=== PATIENT | female | born 2000 | race Caucasian/White ===

== ENCOUNTER 2024-09-12 19:35 | Emergency (ER) | payer OTHER | END 2024-09-12 22:13 | LOC: CSHERS 19:35 | DX: J06.9 Acute upper respiratory infection, unspecified (principal) | CPT/HCPCS: 87428; 99283 ==

== ENCOUNTER 2025-07-24 20:35 | Day surgery (SDC) | payer OTHER ==
[2025-07-24 21:11] VITALS: BMI 27.3
[2025-07-24] MEDS ORDERED: hydrALAZINE 20 MG/ML VIAL SLOW IVP PRN (22:04)
[2025-07-24 23:35] LABS: Glucose, Urine (Dipstick) Normal (Negative); Leukocyte Negative (Negative); Protein, Urine (Dipstick) 30 mg/dl (Neg-Trace); Specific Gravity, Urine 1.020 (1.005-1.030)
[2025-07-24 23:42] LABS: Bacteria/HPF None Seen HPF (None Seen); RBC/HPF None Seen HPF (0-3); WBC/HPF None Seen HPF (0-3)
== END 2025-07-24 23:53 | disposition home or self-care (01) ==
LOC: CSHLD/OP 20:35
PROVIDERS: ATTEND Family Medicine
DX: O99.891 Other specified diseases and conditions complicating pregnancy (principal); R10.9 Unspecified abdominal pain; Z3A.38 38 weeks gestation of pregnancy; Z67.41 Type O blood, Rh negative
CPT/HCPCS: 81001

== ENCOUNTER 2025-08-04 20:53 | Inpatient (IN) | payer OTHER ==
[~2025-08-04 20:53] MED LIST: Acetaminophen 500 MG TAB PO PRN; Bupivacaine 0.25% HCL 30 ML VIAL ONE; Bupivacaine HCl 0.5%/Epinephrine 1:200,000/PF 30 ml Vial ONE; Carboprost 250 MCG/ML AMP IM PRN; Diphenoxylate HCl/Atropine Tablet PO PRN; Ibuprofen 800 MG TAB PO PRN; Lidocaine 1% (PF) 30 ML VIAL SC PRN; Methylergonovine 0.2 MG/ML VIAL IM PRN; Tranexamic Acid 1,000 MG/10 ML VIAL IVP PRN; hydrALAZINE 20 MG/ML VIAL SLOW IVP PRN
[2025-08-04] MEDS ORDERED: Penicillin G Potassium 5 MILL.UNITS in Sodium Chloride 0.9% 100 ML IVPB SCH (21:00)
[2025-08-04] MEDS ORDERED: Oxytocin 30 units/NS 500 ML 500 ML IV SCH ×2 (21:00)
[2025-08-04 21:14] VITALS: BMI 27.6
[2025-08-04 22:11] LABS: Hematocrit 37.1 % (34.9-44.5); Hemoglobin 12.7 g/dL (12.0-15.5); Mean Corpuscular Hemoglobin 30.5 pg (27.0-33.0); Mean Corpuscular Volume 89.2 fL (81.6-98.3); Platelet Count 182 10x3/uL (150-450); Red Blood Cell (RBC) Count 4.16 10x6/uL (3.90-5.03); White Blood Cell (WBC) Count 10.46 10x3/uL (3.5-10.5)
[2025-08-04 22:45] LABS: Hep B Surf Ag - L&D Non-Reactive S/CO (NonReactive)
[2025-08-04 22:47] LABS: Syphilis Antibody Index 0.02 S/CO (<1.00 Non-Reactive)
[2025-08-05] MEDS ORDERED: Penicillin G 2.5 MILL.units 2.5 MILL.UNITS in Premix 1 BAG IVPB SCH (01:00)
[2025-08-05] MEDS: fentaNYL/Ropivacaine Epidural 100 ML ONE (11:39)
[2025-08-05] MEDS: Penicillin G Potassium 5 MILL.UNITS in Sodium Chloride 0.9% 100 ML IVPB SCH (12:33)
[2025-08-05] MEDS: Oxytocin 30 units/NS 500 ML 500 ML IV SCH (12:59)
[2025-08-05] MEDS: Penicillin G 2.5 MILL.units 2.5 MILL.UNITS in Premix 1 BAG IVPB SCH (15:49)
[2025-08-05] MEDS: Ondansetron PF 4 MG/2 ML Vial IVP PRN (19:23)
[2025-08-06] MEDS: Acetaminophen 500 MG TAB PO SCH (01:35)
[2025-08-06 02:26] LABS: Analyzer IN Cardio CS NICU; Critical Notified By: CP.PH; RapidComm Collect By CBN; pH (Cord, venous) 7.371 (7.250-7.350)
[2025-08-06 02:29] LABS: Analyzer IN Cardio CS NICU; Critical Notified By: CP.PH; RapidComm Collect By CBN
[2025-08-06] MEDS: Ibuprofen 800 MG TAB PO SCH ×2 (02:48→10:31)
[2025-08-06] MEDS ORDERED: Methylergonovine 0.2 MG TAB PO PRN (03:49)
[2025-08-06] MEDS ORDERED: Ondansetron PF 4 MG/2 ML Vial IVP PRN (03:49)
[2025-08-06] MEDS ORDERED: Lanolin Ointment 7 GM TUBE TOP PRN (03:49)
[2025-08-06] MEDS ORDERED: diphenhydrAMINE 25 MG CAP PO PRN (03:49)
[2025-08-06] MEDS ORDERED: Bisacodyl 10 MG SUPP PR PRN (03:49)
[2025-08-06] MEDS ORDERED: Milk Of Magnesia 30 ML UDCUP PO PRN (03:49)
[2025-08-06] MEDS ORDERED: Oxytocin 30 units/NS 500 ML 500 ML IV SCH (03:49)
[2025-08-06] MEDS ORDERED: hydrALAZINE 20 MG/ML VIAL SLOW IVP PRN (03:49)
[2025-08-06] MEDS: Ferrous Sulfate 325 MG TAB PO SCH (07:21)
[2025-08-06] MEDS: Benzocaine-Menthol 82.5 ML CAN TOP PRN (07:34)
[2025-08-06] MEDS: Acetaminophen 325 MG TAB PO PRN (09:06)
[2025-08-06] MEDS ORDERED: Measles/Mumps/Rubella 10 MCG/0.5 ML VIAL SC ONE (17:30)
[2025-08-06] MEDS: fentaNYL/Ropivacaine Epidural 100 ML ONE (17:45)
[2025-08-07 08:22] VITALS: BP 114/63; TEMP 97.4
[2025-08-07] MEDS: Measles/Mumps/Rubella 10 MCG/0.5 ML VIAL SC ONE (13:35)
[2025-08-08 05:38] LABS: Mumps IgG ABS Less than 9.0 AU/mL (Immune >10.9); Rubella Virus IgG Less than 0.90 index (Immune >0.99)
== END 2025-08-07 14:40 | disposition home or self-care (01) | DRG 768 ==
LOC: CSHLD 20:53 → CSHPP 08-06 04:15
PROVIDERS: ADMIT Family Medicine; ATTEND Family Medicine
PROC: 4A1HXCZ Monitoring of Products of Conception, Cardiac Rate, External Approach (ICD-10-PCS; 2025-08-05)
PROC: 3E0P7VZ Introduction of Hormone into Female Reproductive, Via Natural or Artificial Opening (ICD-10-PCS; 2025-08-05)
PROC: 10907ZC Drainage of Amniotic Fluid, Therapeutic from Products of Conception, Via Natural or Artificial Opening (ICD-10-PCS; 2025-08-05)
PROC: 10H07YZ Insertion of Other Device into Products of Conception, Via Natural or Artificial Opening (ICD-10-PCS; 2025-08-05)
PROC: 10E0XZZ Delivery of Products of Conception, External Approach (ICD-10-PCS; principal; 2025-08-06)
PROC: 0DQR0ZZ Repair Anal Sphincter, Open Approach (ICD-10-PCS; 2025-08-06)
DX: O99.824 Streptococcus B carrier state complicating childbirth (principal); Z37.0 Single live birth; Z3A.40 40 weeks gestation of pregnancy; Z90.721 Acquired absence of ovaries, unilateral; O77.0 Labor and delivery complicated by meconium in amniotic fluid; O66.0 Obstructed labor due to shoulder dystocia; O70.21 Third degree perineal laceration during delivery, IIIa; O69.81X0 Labor and delivery complicated by cord around neck, without compression, not applicable or unspecified; O86.12 Endometritis following delivery
CPT/HCPCS: 36415; 51702; 82805; 85027; 86735; 86762; 86765; 86780; 86850; 86900; 86901; 87340; 90707; J0290; J0665; J1580; J2405; J2540; J2590; J7120